=== PATIENT | male | born 1990 | race Two or more races ===

== ENCOUNTER 2016-11-16 14:50 | Emergency (ER) | payer SELFPAY ==
[~2016-11-16] VITALS: Ht 167.6 cm; Wt 79.8 kg
[2016-11-16] MEDS ORDERED: MAALOX/HYOSCYAMINE/LIDOCAINE 45 ML BOTTLE ONE (16:44)
[2016-11-16] MEDS ORDERED: MAALOX/HYOSCYAMINE/LIDOCAINE 45 ML BOTTLE PO ONE (17:00)
[2016-11-16] MEDS ORDERED: PLEASE ENTER ALLERGIES MC SCH ×2 (17:00)
[2016-11-16 17:22] LABS: ASPARTATE AMINO TRANSFERASE 192 U/L (15-37); BLOOD UREA NITROGEN 21 mg/dL (7-18)
[2016-11-16] MEDS ORDERED: SODIUM CHLORIDE 0.9% 1,000 ML IV ONE (17:33)
[2016-11-16] MEDS ORDERED: ONDANSETRON 2MG/ML, 2ML ONE (18:00)
[2016-11-16] MEDS ORDERED: SODIUM CHLORIDE FLUSH 10ML SYR IVF ONE (18:00)
[2016-11-16] MEDS ORDERED: SODIUM CHLORIDE 0.9% 1,000ML IVBOLUS ONE (18:00)
[2016-11-16] MEDS ORDERED: ONDANSETRON 2MG/ML, 2ML IVPush ONE (18:00)
[2016-11-16 19:34] VITALS: BP 129/69
== END 2016-11-16 19:36 | disposition home or self-care (01) ==
LOC: ED 18:55
DX: R10.13 Epigastric pain (principal); R07.89 Other chest pain
CPT/HCPCS: 36415; 71020; 76700; 80053; 83690; 85025; 93005; 96361; 96374; 99285; J2405; J7030